=== PATIENT | male | born 1955 | race Caucasian/White ===

== ENCOUNTER 2020-04-25 04:11 | Outpatient (CLI) | payer BC, SELFPAY ==
[2020-04-25 11:00] LABS: ALT 31 U/L (16-63); AST 22 U/L (15-37); Albumin 4.1 g/dL (3.4-5.0); Alkaline Phosphatase 59 U/L (46-116); Anion Gap 11.6 mmol/L (3-11); BUN 18 mg/dL (7-18); Bilirubin, Total 1.7 mg/dL (0.2-1.0); CO2 26.4 mmol/L (21.0-32.0); CREATININE 0.83 mg/dL (0.70-1.30); Calcium 8.9 mg/dL (8.5-10.1); Calculated LDL 195 mg/dL (<100); Chloride 102 mmol/L (98-107); Cholesterol 244 mg/dL (<200); Glucose 93 mg/dL (74-106); HDL Cholesterol 34 mg/dL (40-60); Potassium 4.2 mmol/L (3.5-5.1); Sodium 140 mmol/L (136-145); TSH (W/Ref FT4) 0.78 uIU/mL (0.36-3.74); Total Protein 7.1 g/dL (6.4-8.2); Triglyceride 77 mg/dL (<150)
== END 2020-04-25 04:31 ==
PROVIDERS: PCP Family Medicine; Visit Provider Family Medicine
DX: R53.83 Other fatigue (principal); E78.00 Pure hypercholesterolemia, unspecified
CPT/HCPCS: 36415; 80053; 80061; 84443

== ENCOUNTER 2021-05-06 18:11 | Emergency (ER) | payer BC, SELFPAY ==
[2021-05-06] VITALS (12 sets, daily range): BP systolic 116–125; BP diastolic 68–73; PULSE 54–67; RESP 15–21; TEMP 36.3; O2SAT 94–98
--- NOTE | 2021-05-06 18:15 | RT.EKG_ITS ---
APPROVED REPORT Exam: Resting ECG Reason for Exam: weekness, dissiness Patient Location: E HR:57 bpm ECG Measurements Heart Rate 57 AXIS IL 210 P 48 QRSd 97 QRS -28 QT 413 T 55 QTc 404 Conclusion Sinus bradycardia...rate< 60
--- NOTE | 2021-05-06 18:26 | W.ED.GENAD ---
Discharge Plan Disposition Patient Disposition: HOME Condition: Improving Discharge Details Clinical Impression: Acute sinusitis Primary Care Provider: Jarett Leon ED Provider: Eric Mar Home Meds and New Rx's Prescriptions: New prednisone 50 mg tablet 50 mg PO DAILY 5 Days Qty: 5 RF: 0 clarithromycin 500 mg tablet 500 mg PO BID 10 Days Qty: 20 RF: 0 Continued multivitamin [Daily Multi-Vitamin] 1 EACH tablet 1 ea PO DAILY RF: 0 Discharge Instructions Instructions: Sinusitis (ED) Additional Instructions: Please take antibiotic and prednisone as prescribed. Home to rest tonight. Return if you develop worsening headache, or any other acute concerns. Medical Decision Making 65-year-old male who takes daily vitamins only, reports driving home from work feeling fairly abrupt onset of right superior head pain, sensation of dizziness and confusion. He is able to drive home slowly. And brought to the hospital by his . He arrives to the ER alert and interactive with a temp of 36.3, pulse 67, blood pressure 125/69. No acute focal deficits on his neurologic exam. He does report a history of sinus disease. Differential diagnosis includes sinusitis, fugue-like state, must exclude intracranial mass or hemorrhage. Patient IV access established, screening labs, EKG obtained he is referred for screening chest x-ray as well as scan of the head. Noncontrast CT scan reveals diffuse paranasal sinus disease. Chest x-ray is unremarkable. Patient subsequently referred for CTA. CBC unremarkable, chemistries with noted BUN slightly elevated at 24, otherwise reassuring, troponin negative. CT angiogram with no evidence of stenosis or occlusion. The patient is improving and feeling more normal without any further complaints of pain. Does complain of sensation of pressure over his cheek and ear on the right. Do feel this is consistent with acute on chronic sinusitis. Will treat with Biaxin and a course of prednisone for its anti-inflammatory properties. Patient understands indications to seek reevaluation and I discussed same with he and his at the bedside prior to discharge. HPI General Mode of arrival: ambulatory. Date/Time Provider Initiated Documentation: 05/06/21 18:11. Limitations to Documentation: no limitations. History of Present Illness 65 year old M presents to the emergency department with the chief complaint of Right-sided headache, confusion, feeling dizzy, described as moderate, Quality is described as dull, and is localized to the head. Patient reports no radiation. Patient started experiencing this minute(s) and it has been constant. No relieving factors improve symptom(s), No exacerbating factors reported . Patient notes confusion, headaches and other (Feels confused); denies syncope. Patient did receive the following treatments prior to arrival, none Related Data Home Medications Medication Instructions Recorded Confirmed multivitamin [Daily Multi-Vitamin] 1 ea PO DAILY tab 07/25/13 04/03/20 clarithromycin 500 mg PO BID 10 Days #20 tab 05/06/21 prednisone 50 mg PO DAILY 5 Days #5 tab 05/06/21 Previous Rx's Medication Instructions Recorded clarithromycin 500 mg PO BID 10 Days #20 tab 05/06/21 prednisone 50 mg PO DAILY 5 Days #5 tab 05/06/21 Allergies Allergy/AdvReac Type Severity Reaction Status Date / Time ibuprofen [From Motrin] Allergy Severe swollen Verified 12/08/20 10:54 throat penicillin G Allergy Severe Verified 12/08/20 10:54 aspirin Allergy Unknown swollen Verified 12/08/20 10:54 throat Review of Systems Narrative: No fall or injury. No chest pain or shortness of breath, no diaphoresis. Feels confused, feels dizzy, feels worse with movement of the head. [facility] Medical History Chronic low back pain (11/30/07) laminectomy [facility] Dr Severino 12/1990 Essential hypertension (05/25/13) Fracture of clavicle (07/25/13) Hypercholesterolemia (11/30/07) Obesity Ribs, multiple fractures various injuries - pt reports 3 fractures on right and 3 fractures on left. 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 Pleasant, well groomed, interactive. HEAD: Normocephalic, atraumatic ENT: Mucous membranes moist, oropharynx unremarkable, External ear exam unremarkable EYES: PERRL, EOMI NECK: Full ROM, no JENN, no menigismus CHEST/RESP: Nontender, clear to auscultation bilateral, no wheeze/rhonchi/rales CARDIOVASCULAR: RRR, no murmur, rub frida. 2+ Rad pulse bilateral ABDOMEN: Soft, nontender, no mass. +Bowel sounds EXT: Full ROM, no edema, no rash Neuro: Grossly normal neurologic exam, conversant, interactive. Cranial nerves II through XII intact, [id number]-sm-[id number] is intact but quite slow and delayed. No motor dysfunction. Psych: Speech fluent, thoughts congruent, affect normal
--- NOTE | 2021-05-06 18:40 | DI.CT_ITS ---
Exam(s) CT HEAD - STROKE PROTOCOL EXAM: CT HEAD - STROKE PROTOCOL CLINICAL HISTORY: R headache, dizzy. TECHNIQUE: Imaging Protocol: Axial computed tomography images with coronal and sagittal reformatted images were created and reviewed COMPARISON: None FINDINGS: There are no skull fractures. There is a surgical defect in the medial wall of the left maxillary s inus. Prominent mucosal thickening is noted in both maxillary sinuses, without fluid levels therein. Also partial opacification of the left frontal sinus. Opacification of multiple ethmoid air cells bilateral. Sphenoid sinuses are well aerated. Mastoid air cells are clear. There is no evidence of intracranial hemorrhage, mass effect, or shift of midline structures. There are no extra-axial fluid collections. The ventricles are not enlarged or shifted and there is no blo od within the ventricular system nor within the basal cisterns. There is no abnormal area of hypodensity on the right side measuring 11 by 6 millimeters, located in the right sub lenticular region. Possibly sub lenticular cyst. Similar finding is not seen on the o pposite side. Heavy calcification left vertebral artery at the skull base is noted as well as calcification in the intracavernous internal carotid arteries. IMPRESSION: No acute intracranial findings on this noninfused CT scan of the brain. There is an 11 x 6 millimeter hypodensity in the right sub lenticular region. This may be a developm ental cyst. Follow-up MRI can be performed. RADIATION DOSE DELIVERED: 771.02mGy.cm Total DLP DATA REPOSITORY: All CT scans at this facility are submitted to the National Radiology Data Registry (NRDR) Dose Index Registry (DIR) with the [employer] (ACR). RADIATION OPTIMIZATION: All CT scans at this facility use at least one of these dose optimization te chniques: automated exposure control; mA and/or kV adjustment per patient size (includes targeted exa ms where dose is matched to clinical indication); or iterative reconstruction.
--- NOTE | 2021-05-06 18:45 | DI.RAD_ITS ---
Exam(s) XR CHEST 1V IN DI DEPT EXAM: XR CHEST 1V IN DI DEPT CLINICAL HISTORY: HEadache, dizzy. TECHNIQUE: 2D digital imaging was performed. COMPARISON: CR CHEST 2 VIEWS PA,LAT from 01/21/2011 FINDINGS: Heart size is normal. The mediastinum is not widened. Lungs are clear. No infiltrates nor obvious pleural effusions. IMPRESSION: No acute pulmonary findings on this single AP portable view of the chest. DATA REPOSITORY: RADIATION DOSE DELIVERED: All CT scans at this facility use at least one of these dose optimization techniques: automated exposure control; mA and/or kV adjustment per patient size (includes targeted e xams where dose is matched to clinical indication); or iterative reconstruction.
--- NOTE | 2021-05-06 19:03 | DI.VRAD_ITS ---
PROCEDURE INFORMATION: Exam: CT Head Without Contrast Exam date and time: 05/06/2021 6:24 PM Age: 65 years old Clinical indication: Right headache, dizzy TECHNIQUE: Imaging protocol: Computed tomography of the head without contrast. Radiation optimization: All CT scans at this facility use at least one of these dose optimization techniques: automated exposure control; mA and/or kV adjustment per patient size (includes targeted exams where dose is matched to clinical indication); or iterative reconstruction. Other technique: STROKE PROTOCOL was implemented. COMPARISON: No relevant prior studies available. FINDINGS: Brain: There is no acute intracranial hemorrhage, mass effect or midline shift. There is no large acute territorial cerebral infarct. Cerebral ventricles: No ventriculomegaly. There is a small choroid fissure cyst noted adjacent to the right temporal lobe. Paranasal sinuses: There is mucosal thickening throughout the left frontal and bilateral ethmoid and maxillary sinuses. Mastoid air cells: Visualized mastoid air cells are well aerated. Bones/joints: No acute fracture. Soft tissues: Unremarkable. IMPRESSION: 1. No acute intracranial hemorrhage, mass effect or midline shift. 2. Diffuse paranasal sinus disease. ASSESSMENT: ASPECTS ([facility] Stroke Program Early CT Score) is 10. Dictated and Authenticated by: Diamond Hernandez MD. Ordering:LOIS Reyes MD
[2021-05-06 19:08] LABS: Abs Immature Grans 0.07 10^3/uL (0.0-0.06); Absolute Basophil Count 0.06 10^3/uL (0.0-0.2); Absolute Eosinophil Count 0.43 10^3/uL (0.0-0.7); Absolute Monocyte Count 1.08 10^3/uL (0.1-0.8); Basophils % 0.6; Eosinophils % 4.3; HCT 43.8 % (40.0-50.0); HGB 14.8 g/dL (13.5-17.5); Immature Grans % 0.7; Lymphocytes % 36.2; MCH 29.7 pg (27.0-33.0); MCHC 33.8 % (32.0-36.0); MCV 87.8 fL (80-95); MPV 10.7 fL (8.0-11.0); Monocytes % 10.9; Neutrophils % 47.3; Nucleated RBC 0 %; Platelet Count 168 10^3/uL (130-400); RBC 4.99 10^6/uL (4.36-5.78); RDW 12.2 % (11.8-14.1); RDW-SD 39.1 fL; WBC 9.94 10^3/uL (4.4-10.8)
--- NOTE | 2021-05-06 19:19 | DI.VRAD_ITS ---
PROCEDURE INFORMATION: Exam: XR Chest Exam date and time: 05/06/2021 6:26 PM Age: 65 years old Clinical indication: Headache, dizzy TECHNIQUE: Imaging protocol: XR of the chest. Views: 1 view. COMPARISON: No relevant prior studies available. FINDINGS: Lungs: Unremarkable. No consolidation. Pleural spaces: Unremarkable. No pleural effusion. No pneumothorax. Heart/Mediastinum: Unremarkable. No cardiomegaly. Bones/joints: Unremarkable. IMPRESSION: No acute findings. Dictated and Authenticated by: Diamond Hernandez MD. Ordering:LOIS Reyes MD
[2021-05-06] MEDS: ACETAMINOPHEN 1,000 MG/100 ML BTL 400 MG IVPB (19:20)
[2021-05-06 19:26] LABS: ALT 28 U/L (16-63); AST 14 U/L (15-37); Albumin 3.7 g/dL (3.4-5.0); Alkaline Phosphatase 49 U/L (46-116); Anion Gap 8.5 mmol/L (3-11); BUN 24 mg/dL (7-18); Bilirubin, Total 0.5 mg/dL (0.2-1.0); CO2 27.5 mmol/L (21.0-32.0); CREATININE 0.9 mg/dL (0.70-1.30); Calcium 8.7 mg/dL (8.5-10.1); Chloride 104 mmol/L (98-107); Glucose 103 mg/dL (74-106); Potassium 3.8 mmol/L (3.5-5.1); Sodium 140 mmol/L (136-145)
[2021-05-06 19:27] LABS: Troponin I < 0.05 ng/mL (<0.06)
[2021-05-06 19:32] LABS: PTT Activated 24.6 sec (21.0-27.5); Prothrombin Time 10.5 sec (9.3-11.0)
[2021-05-06 19:52] LABS: ETHANOL BLOOD < 3.0 mg/dL (<3)
--- NOTE | 2021-05-06 19:57 | DI.CT_ITS ---
Exam(s) CT BRAIN NECK CTA EXAM: CT BRAIN NECK CTA CLINICAL HISTORY: sinus infection, dizziness, R headache. TECHNIQUE: Imaging Protocol: Axial CT angiography was performed with multi-slice acquisition and mu lti-planar and/or 3D reconstructions. CONTRAST MATERIAL: Intravenous: Omnipaque 350 Contrast volume:85 cc COMPARISON: No exams were available for comparison FINDINGS: CTA Neck W: Aortic arch anatomy: The aortic arch anatomy is conventional. Anterior circulation: Both common carotid arteries ascend with normal luminal diameters. No evidence of significant stenos is at the level the carotid bifurcations and proximal internal carotid arteries and the internal ferguson tid arteries exhibit normal caliber in the upper neck and without significant tortuosity. There also demonstrated to be patent in the skull base-carotid canals. Posterior circulation: Both vertebral arteries originated conventional fashion off of the subclavian arteries without signif icant stenosis at their origins and both vertebral arteries ascend with equal and normal luminal diam eters in the foramen transverse area with no evidence of intraluminal thrombus nor dissection. At th e skull base there is calcified plaque on the lateral wall of the left vertebral artery without a tig ht stenosis at this level. Both vertebral arteries contribute to the formation of the basilar artery at the skull base. CTA Brain W: Anterior circulation: Both internal carotid arteries are patent in the skull base-carotid canals. There peripherally calci fied in the cavernous sinuses but without critical stenosis within these vessels at this level. The supraclinoid aspects are patent and nonaneurysmal. Right middle cerebral artery is patent. Left mid dle cerebral artery is patent. Both middle cerebral arteries are demonstrated be patent out to the s ylvian fissure branches. There are no aneurysms in these vessels Both A1 segments are patent. Anterior cerebral arteries are both patent and there is no aneurysm at the level of the anterior communicating artery. Posterior circulation: The basilar artery is sends in the midline after being formed by both vertebral arteries at the skull base. Basilar artery ascends with normal luminal diameter and no evidence of intraluminal thrombus nor dissection. Distally it gives off patent bilateral superior cerebellar arteries and above this l evel terminates as patent bilateral posterior cerebral arteries. There are no posterior communicatin g arteries on either side of the [id number]. There is no aneurysm at the tip of the basilar ar dennis nor elsewhere in the [id number]-pk-[id number]. CT BRAIN: There are no skull fractures. There is sys prominent mucosal thickening in both maxillary sinuses. Also surgical defect noted in the medial wall of the left maxillary sinus. Ethmoidal air c ells are opacified as is the left frontal sinus. There is sparing of the sphenoid sinuses. There is no evidence of intracranial hemorrhage, mass effect, or shift of midline structures. There are no extra-axial fluid collections. Ventricles are not enlarged or shifted and there is no blood w ithin the ventricular system nor within the basal cisterns. There are no ring enhancing lesions in t he brain and no abnormal meningeal enhancement. There is a developmental sub lenticular cyst seen on the right side of the brain. IMPRESSION: 1. No evidence of significant atherosclerotic stenosis in the carotid arteries in the neck. 2. There is calcified plaque on the lateral wall of the left vertebral artery at the skull base. Th ere does not appear to be a tight stenosis at this level. Both vertebral arteries contribute to the formation of the basilar artery at the skull base. 3. No evidence of intraluminal thrombus nor dissection of the intracranial arteries. Also no aneur ysms. RADIATION DOSE DELIVERED: 1,179.32mGy.cm Total DLP DATA REPOSITORY: All CT scans at this facility are submitted to the National Radiology Data Registry (NRDR) Dose Index Registry (DIR) with the [employer] (ACR). RADIATION OPTIMIZATION: All CT scans at this facility use at least one of these dose optimization te chniques: automated exposure control; mA and/or kV adjustment per patient size (includes targeted exa ms where dose is matched to clinical indication); or iterative reconstruction.
[2021-05-06] MEDS: Normal Saline 1,000 ML 1000 ML IV (20:07)
[2021-05-06] MEDS: Clarithromycin 500 MG TAB PO (20:39)
--- NOTE | 2021-05-06 20:44 | DI.VRAD_ITS ---
PROCEDURE INFORMATION: Exam: CT Angiography Head With Contrast, Arteriography Exam date and time: 05/06/2021 7:11 PM Age: 65 years old Clinical indication: Sinus infection, dizziness, R headache TECHNIQUE: Imaging protocol: Computed tomography angiography of the head with contrast. Exam focused on the arteries. 3D rendering (Not supervised by radiologist): MIP and/or 3D reconstructed images were created by the technologist. Radiation optimization: All CT scans at this facility use at least one of these dose optimization techniques: automated exposure control; mA and/or kV adjustment per patient size (includes targeted exams where dose is matched to clinical indication); or iterative reconstruction. Contrast material: OMNIPAQUE 350; Contrast volume: 85 ml; Contrast route: INTRAVENOUS (IV); COMPARISON: CT HEAD - STROKE PROTOCOL 05/06/2021 6:34 PM FINDINGS: ANTERIOR CIRCULATION: Right internal carotid artery: Unremarkable. Intracranial segment is patent with no significant stenosis. No aneurysm. Right middle cerebral artery: Unremarkable. No occlusion or significant stenosis. No aneurysm. Right anterior cerebral artery: Unremarkable. No occlusion or significant stenosis. No aneurysm. Left internal carotid artery: Unremarkable. Intracranial segment is patent with no significant stenosis. No aneurysm. Left middle cerebral artery: Unremarkable. No occlusion or significant stenosis. No aneurysm. Left anterior cerebral artery: Unremarkable. No occlusion or significant stenosis. No aneurysm. POSTERIOR CIRCULATION: Right vertebral artery: Unremarkable. No occlusion or significant stenosis. No aneurysm. Left vertebral artery: Unremarkable. No occlusion or significant stenosis. No aneurysm. Basilar artery: Unremarkable. No occlusion or significant stenosis. No aneurysm. Right posterior cerebral artery: Unremarkable. No occlusion or significant stenosis. No aneurysm. Left posterior cerebral artery: Unremarkable. No occlusion or significant stenosis. No aneurysm. Brain: No definite mass, mass effect, or midline shift. Cerebral ventricles: No ventriculomegaly. Bones/joints: Unremarkable. No acute fracture. Soft tissues: Unremarkable. IMPRESSION: No large vessel stenosis or occlusion. PROCEDURE INFORMATION: Exam: CT Angiography Neck With Contrast Exam date and time: 05/06/2021 7:11 PM Age: 65 years old Clinical indication: Sinus infection, dizziness, R headache TECHNIQUE: Imaging protocol: Computed tomography angiography of the neck with contrast. 3D rendering (Not supervised by radiologist): MIP and/or 3D reconstructed images were created by the technologist. Radiation optimization: All CT scans at this facility use at least one of these dose optimization techniques: automated exposure control; mA and/or kV adjustment per patient size (includes targeted exams where dose is matched to clinical indication); or iterative reconstruction. Contrast material: OMNIPAQUE 350; Contrast volume: 85 ml; Contrast route: INTRAVENOUS (IV); COMPARISON: CT HEAD - STROKE PROTOCOL 05/06/2021 6:34 PM FINDINGS: Right common carotid artery: No stenosis. No dissection or occlusion. Right internal carotid artery: No stenosis of the extracranial segment. No dissection or occlusion. Right external carotid artery: No occlusion or stenosis of the origin. Left common carotid artery: No stenosis. No dissection or occlusion. Left internal carotid artery: No stenosis of the extracranial segment. No dissection or occlusion. Left external carotid artery: No occlusion or stenosis of the origin. Right vertebral artery: No stenosis. No dissection or occlusion. Left vertebral artery: No stenosis. No dissection or occlusion. Soft tissues: Normal. No significant soft tissue swelling. Bones/joints: No acute fracture. IMPRESSION: No stenosis or occlusion. REFERENCES: NASCET CRITERIA. The degree of internal carotid artery stenosis is based on NASCET criteria. Normal is no stenosis. Mild is less than 50% stenosis. Moderate is 50-69% stenosis. Severe is 70% to 99% stenosis. Total occlusion is no detectable patent lumen. Dictated and Authenticated by: Diamond Hernandez MD. Ordering:LOIS Reyes MD
[2021-05-06 21:01] LABS: *AMPHETAMINES SCREEN URINE Negative (Negative); *BARBITURATES SCREEN URINE Negative (Negative); *BENZODIAZEPINES SCREEN URINE Negative (Negative); Cannabinoids THC Negative (Negative); Cocaine Screen,Urine Negative (Negative); METHADONE URINE SCREEN Negative (Negative); OPIATES URINE SCREEN Negative (Negative)
[2021-05-06 21:08] LABS: Tricyclic Antidepressants Negative (Negative)
[2021-05-06] MEDS: predniSONE 20 MG TAB 60 MG PO (21:14)
[2021-05-07] MEDS: Omnipaque 350 MG/ML 100 ML BTL IJ (00:55)
[2021-05-07] MEDS: Normal Saline Flush 10 ML SYR IVP (00:56)
== END 2021-05-06 21:23 | disposition home or self-care (01) ==
PROVIDERS: Emergency Provider Emergency Medicine; PCP Family Medicine
DX: J01.80 Other acute sinusitis (principal); R51.9 Headache, unspecified; R42 Dizziness and giddiness
CPT/HCPCS: 36415; 36416; 70496; 70498; 80053; 80307; 82962; 93005; 96361; 96365; 99285; 70450; 71045; 80320; 84484; 85025; 85610; 85730; 93010; 99284; J0131; J3490; J7512